=== PATIENT | female | born 1945 ===

== ENCOUNTER 2022-02-14 07:57 | Day surgery (SDC) | payer OTHER ==
[~2022-02-14] VITALS: Ht 157.5 cm; Wt 63.5 kg
[~2022-02-14 07:57] MED LIST: ECOTRIN81 MG PO; GLUMETZA500 MG PO; LYRICA100 MG PO; NORVASC2.5 M1 PO; VITAMIN D PO; ZIAC 10/6.25 MG1 TAB PO; ZOCOR PO; [UNRECOGNIZED DRUG - OTHER] PO
[2022-02-14] MEDS ORDERED: IBU600 MG PO (12:49)
== END 2022-02-14 17:00 | disposition home or self-care (01) ==
LOC: CIR.AMB 07:57
PROVIDERS: ATTEND Obstetrics & Gynecology Gynecology
DX: N84.0 Polyp of corpus uteri (principal); I10 Essential (primary) hypertension; R73.03 Prediabetes; Z92.21 Personal history of antineoplastic chemotherapy; Z85.3 Personal history of malignant neoplasm of breast